=== PATIENT | male | born 1990 | race Caucasian/White ===

== ENCOUNTER 2022-07-05 23:45 | Emergency (ER) | payer BC, SELFPAY ==
--- NOTE | ~2022-07-05 | XR_ITS ---
EXAMINATION: XR chest 2V DATE: 07/06/2022 00:25 INDICATION: Left chest pain. Shortness of breath. TECHNIQUE: Frontal and lateral views of the chest were obtained. COMPARISON: None. FINDINGS: The chest demonstrates clear lungs without pneumonia, pleural effusion, or pneumothorax. Th e heart size is normal. IMPRESSION: 1. No acute cardiopulmonary disease. Reviewed, dictated and finalized at location A.
--- NOTE | 2022-07-05 23:47 | ECG_ITS ---
Measurements Intervals [place] Rate: 78 P: 28 AL: 143 QRS: 23 QRSD: 98 T: 17 QT: 372 QTc: 424 Interpretive Statements SINUS RHYTHM WITH OCCASIONAL SUPRAVENTRICULAR PREMATURE COMPLEXES Electronically Signed On 07-06-2022 8:25:20 CDT by Peter Mims M.D.
[2022-07-05 23:51] VITALS: BP 156/119; PULSE 73; PULSE 83; RESP 18; RESP 20; TEMP 36.8; O2SAT 100
[2022-07-05 23:52] VITALS: BP 156/119; PULSE 78; RESP 13; O2SAT 100
[2022-07-05 23:58] VITALS: PULSE 80
[2022-07-06] VITALS (19 sets, daily range): BP systolic 124–164; BP diastolic 73–100; PULSE 53–77; RESP 13–21; O2SAT 95–100
--- NOTE | 2022-07-06 00:04 | ED.CHESTPAIN ---
HPI - Chest Pain General Chief Complaint: Chest Pain Stated Complaint: CP, SOB Time Seen by Provider: 07/05/22 23:51 History of Present Illness HPI narrative: Pt is a 31 y/o male, presents to ED via POV with 5 day hx of left midsternal chest pain, non radiating, constant and described as tightness . Pain was worse 4 days ago and has since improved some however, he continues to have this discomfort and associates generalized myalgia, fatigue and malaise. He has no known fevers or chills, denies cough or URI symptoms, abdominal pain, NVDC or urinary symptoms. He denies any additional associated symptoms or modifying factors. Related Data Allergies Allergy/AdvReac Type Severity Reaction Status Date / Time No Known Allergies Allergy Verified 07/06/22 00:19 Review of Systems Review of Systems: Refer to HPI Constitutional: Comments: refer to HPI Cardiovascular: Comments: refer to HPI Musculoskeletal: Comments: refer to HPI Exam Const: General: healthy appearing, no acute distress and alert Orientation/consciousness: patient oriented x3 Limitations: no limitations HENMT: Head: normal to inspection Ears: external ears normal, TM's normal bilaterally and EAC's normal Mouth: Yes Normal oral and palatal mucosa present Teeth and gingiva: dentition normal Eyes: Conjunctivae: conjunctivae normal Pupils: Equal, round and reactive pupils present EOM: EOMs intact bilaterally Neck: Neck: normal visual inspection, no lymphadenopathy and no meningeal signs Chest: Chest palpation & inspection: tenderness (mild ttp over the left sternal border, no crepitus or subq emphysema ) Cardio: Rate: regular rate Rhythm: regular rhythm GI: GI Palp: Yes Soft to palpation, No Tenderness to palpation present (GI), No Guarding due to palpation present (GI), No Rigid due to palpation, No Hernia present, No Palpable mass present and No Rebound tenderness present Back/Spine/Pelvis: Back: no CVA tenderness Skin: General skin exam: normal color Rashes: no rashes Neuro: General: patient oriented x3, moves all extremities, no meningeal signs, no focal motor deficits and CN's II-XI intact bilaterally Psych: Affect: Anxious affect present Course Course Emergency Course: Pt's pain has remained present but is now improved, times 5 days. negative troponin, all other serum studies WNL, EKG unremarkable, CXR clear. Suspect costochondritis versus asthma exacerbation given history of same. Will discharge home with inhaler for rescue, recommending oral antihistamines and PCP FU is stressed. Vital Signs Vital signs: Vital Signs Temperature 36.8 C 07/05/22 23:51 Pulse Rate 73 07/05/22 23:51 Respiratory Rate 18 07/05/22 23:51 Blood Pressure 156/119 H 07/05/22 23:51 Pulse Oximetry 100 07/05/22 23:51 Oxygen Delivery Room Air 07/05/22 23:51 Temperature 36.8 C 07/05/22 23:51 Pulse Rate 80 07/05/22 23:58 Respiratory Rate 18 07/05/22 23:51 Blood Pressure 156/119 H 07/05/22 23:51 Pulse Oximetry 100 07/06/22 00:18 Oxygen Delivery Room Air 07/06/22 00:18 MDM - Chest Pain Lab Data Result diagrams: 07/06/22 00:07 07/06/22 00:07 Labs: Lab Results 07/06/22 07/06/22 07/06/22 Range/Units 00:07 00:07 00:07 WBC 11.1 H (4.5-10.0) K/mm3 RBC 5.52 H (4.2-5.4) M/mm3 Hgb 15.4 H (12.0-15.0) g/dL Hct 46.0 (37.0-47.0) % MCV 83.3 (80-100) fl MCH 27.9 (26-34) pg MCHC 33.5 (32-36) g/dl RDW 12.5 (11.5-14.5) % Plt Count 264 (150-375) k/mm3 MPV 10.5 H (7.4-10.4) fl Immature Gran % (Auto) 0.4 (0-0.5) % Neut % (Auto) 50.5 (45.5-73.1) % Lymph % (Auto) 37.6 (18.3-44.2) % Allen % (Auto) 9.1 H (2.6-8.5) % Eos % (Auto) 2.0 (0-4.4) % Baso % (Auto) 0.4 (0.2-1.2) % Lymph # (Auto) 4.18 H (0.9-3.2) K/mm3 Allen # (Auto) 1.0 H (0.1-0.6) K/mm3 Eos # (Auto) 0.2 (0-0.3) K/mm3 Baso # (Auto) 0.0 (0.0-0.1) K/mm
[2022-07-06 00:16] LABS: Basophils Percent Auto 0.4 % (0.2-1.2); Eosinophils Absolute Auto 0.2 K/mm3 (0-0.3); Hemoglobin 15.4 g/dL (12.0-15.0); Immature Granulocyte Absolute 0.05 K/mm3 (0.00-0.031); Immature Granulocyte Percent A 0.4 % (0-0.5); Lymphocytes Absolute Auto 4.18 K/mm3 (0.9-3.2); Lymphocytes Percent Auto 37.6 % (18.3-44.2); Mean Corpuscular HGB Conc 33.5 g/dl (32-36); Mean Corpuscular Hemoglobin 27.9 pg (26-34); Mean Corpuscular Volume 83.3 fl (80-100); Mean Platelet Volume 10.5 fl (7.4-10.4); Monocytes Percent Auto 9.1 % (2.6-8.5); Neutrophils Absolute Auto 5.6 K/mm3 (1.3-6.7); Neutrophils Percent Auto 50.5 % (45.5-73.1); Platelet Count Result 264 k/mm3 (150-375); Red Blood Count 5.52 M/mm3 (4.2-5.4); Red Cell Distribution Width 12.5 % (11.5-14.5); White Blood Count 11.1 K/mm3 (4.5-10.0)
[2022-07-06 00:27] LABS: Alanine Aminotransferase 27 U/L (6-35); Albumin Level 4.9 g/dL (3.5-5.1); Alkaline Phosphatase 70 U/L (38-126); Anion Gap 11 mmol/L (8-16); Aspartate Amino Transferase 30 U/L (14-36); Bilirubin,Total 0.3 mg/dL (0.2-1.3); Blood Urea Nitrogen 17 mg/dL (7-17); Calcium 9.2 mg/dL (8.4-10.2); Carbon Dioxide 29 mmol/L (22-30); Chloride 98 mmol/L (98-107); Estimated CRCL calculation 96 ml/min; Estimated Glomerular Filt Rate 58; Glucose 99 mg/dL (65-110); Lipase 91 U/L (23-300); Potassium 3.9 mmol/L (3.4-5.0); Prothrombin Time 13.2 Seconds (11.1-14.7); Sodium 138 mmol/L (137-145)
[2022-07-06 00:28] LABS: Partial Thromboplastin Time 33.3 SECONDS (22.3-36.8)
[2022-07-06 00:28] LABS: Creatine Kinase 83 U/L (30-135)
[2022-07-06] MEDS: ASPIRIN 81 MG CHEWABLE TABLET 324 MG PO (00:30)
[2022-07-06 00:31] LABS: D Dimer < 0.27 ug/mL (<0.48)
[2022-07-06 00:38] LABS: Troponin I < 0.012 ng/mL (0.000-0.034)
[2022-07-06 00:39] LABS: Creatine Kinase MB 1.1 ng/mL (0.0-2.37)
[2022-07-06] MEDS: SODIUM CHLORIDE 0.9% IV 1,000 ML 999 ML IV CONT (00:45)
[2022-07-06 00:52] LABS: SARS-CoV-2 RNA PCR Negative
== END 2022-07-06 02:19 | disposition home or self-care (01) ==
PROVIDERS: Emergency Medicine; Emergency Provider Nurse Practitioner Family; PCP Family Medicine
DX: R07.89 Other chest pain (principal); Z20.822 Contact with and (suspected) exposure to COVID-19
CPT/HCPCS: 36415; 71046; 80053; 82550; 82553; 83690; 84484; 85025; 85380; 85610; 85730; 93005; 96360; 99284; A9270; C9803; J7030; U0003; U0005

== ENCOUNTER 2023-08-29 16:20 | Emergency (ER) | payer BC, SELFPAY ==
[2023-08-29] VITALS (7 sets, daily range): BP systolic 99–144; BP diastolic 61–102; PULSE 74–91; RESP 14–18; TEMP 36.8–37; O2SAT 96–100
--- NOTE | ~2023-08-29 | CT_ITS ---
EXAMINATION: CT abdomen pelvis w con DATE: 08/29/2023 17:37 INDICATION: Upper abdominal pain. Fever. TECHNIQUE: Computed tomography (CT) of the abdomen and pelvis was performed with 100 mL Omnipaque 350 intravenous contrast. Automated exposure control and iterative reconstruction technique were employe d. The dose-length product was 966.81 mGy-cm. COMPARISON: None. FINDINGS: The visualized portions of the lung bases demonstrate minimal atelectasis. No pleural effus ion. The heart size is normal. No pericardial effusion. The liver and spleen are normal. The gallblad maddison is distended and demonstrates wall thickening and pericholecystic fat stranding, consistent with acute cholecystitis. The spleen, pancreas, adrenal glands, and kidneys are normal. There is a left in guinal hernia containing fat. The appendix is normal. There are no dilated loops of bowel. There are no pathologically enlarged lymph nodes. There is no free intraperitoneal fluid. There is mild lumbar spondylosis IMPRESSION: 1. Acute cholecystitis. 2. Left inguinal hernia containing fat. Reviewed, dictated and finalized at location E.
--- NOTE | 2023-08-29 16:25 | ED.ABDPAIN ---
HPI - Abdominal Pain General Chief Complaint: Abdominal Pain Stated Complaint: abdominal pain/fever/diarrhea Time Seen by Provider: 08/29/23 16:25 History of Present Illness HPI narrative: Patient is a 33 year old male with history of prior inguinal hernia repair, here with abdominal pain. Patient notes that Tuesday night he ate a lot of fried food and dairy containing food. He notes he thinks that this has bothered him in the past. He has had intermittent nocturnal abdominal pain and cramping over the last 3 months. He began having a low grade fever this weekend, running around 99F and generally feeling unwell. He notes that he spent most of the day yesterday in bed, only waking to have something to drink last night. This morning he woke up feeling quite a bit better. He made himself a breakfast with eggs and shortly after started having significant abdominal pain. Pain is located in the epigastrium and radiates the left side. Pain has been associated with 3 episodes of diarrhea today. He denies taking anything at home for the symptoms. No associated nausea or vomiting. He has noted some dark urine over the last couple of days and has been trying to drink more water to clear it up. He has had some dysuria, no penile discharge, no hematuria, no history of kidney stone. One sexual partner, irregular condom use. No cough, congestion. No sick contacts. Last PO intake was sips of water before arrival around 4 PM, last solid food intake was around 10 AM this morning at breakfast. Related Data Home Medications Medication Instructions Recorded Confirmed No Home Medications 08/29/23 08/29/23 Allergies Allergy/AdvReac Type Severity Reaction Status Date / Time No Known Allergies Allergy Verified 08/29/23 16:31 Review of Systems Review of Systems: All systems reviewed & are unremarkable except as noted in HPI and below PMFSH Family History Family History Grandparent Acute myocardial infarction Diabetes mellitus Mother Asthma Father Asthma Social History Social History Smoking status: Never smoker Alcohol intake: current Drinks per week: 1 Substance use: never Lack of Transportation: No Lack of Food: Never True Current Housing: I Have Housing Concerned About Future Housing: No Difficulty Paying Gas/Electric Bills: No Difficulty Paying for Meds: No Currently Unemployed: No Education: Associate Degree Difficulty w/ Childcare or Family Care: No Spiritual care concerns: No Exam Narrative: GENERAL: Well-appearing, well-nourished, and in no acute distress. HEAD: Normocephalic, atraumatic. EYES: PERRLA and EOMI. ENT: Nares clear. Mucous membranes moist. NECK: Supple. CHEST: Clear to auscultation. No respiratory distress. HEART: Regular rate and rhythm. Normal peripheral pulses. ABDOMEN: Soft, Left CVA tenderness, no Right CVA tenderness. Tenderness in the epigastrium and on the left abdomen. No rebound or guarding, nondistended. EXTREMITIES: Normal range of motion. No edema. SKIN: Warm, dry, no rash. NEURO: No focal deficits. Alert and oriented x3. PSYCH: Normal mood and affect. Course Course Emergency Course: Chart review performed. Last visit here was for chest pain in 2021. Patient seen evaluated, in no acute distress. Triage vitals within normal limits. He has some left CVA tenderness as well as some epigastric and left-sided abdominal tenderness. Differentials include but are not limited to UTI, pyelonephritis, diverticulitis, gastritis. Will do CT abdomen pelvis to evaluate for possible stone versus colitis/diverticulitis. Lab work reviewed. Leukocytosis of 16.5, electrolytes normal, normal renal function, normal LFTs, normal lipase. UA negative for UTI, does have some hematuria. Viral swabs negative. CT shows acute cholecystitis. Will discuss last PO intake and transfer options with patient. Patient agreeable to transfer to [facility]. Spoke with Dr. Burger, accept
[2023-08-29] MEDS: PANTOPRAZOLE SODIUM IV 40 MG VIAL IV PUSH (16:45)
[2023-08-29] MEDS: SODIUM CHLORIDE 0.9% IV 1,000 ML 999 ML IV CONT (16:45)
[2023-08-29 16:54] LABS: Hematocrit 45.1 % (40.0-54.0); Hemoglobin 15.1 g/dL (14.0-18.0); Mean Corpuscular HGB Conc 33.5 g/dL (32.0-36.0); Mean Corpuscular Hemoglobin 27.9 pg (27.0-31.0); Mean Corpuscular Volume 83.2 fL (78.0-102.0); Mean Platelet Volume 10.3 fl (8.7-11.0); Platelet Count Result 225 K/mm3 (150-420); Red Blood Count 5.42 M/mm3 (4.70-6.10); Red Cell Distribution Width 11.6 % (11.6-14.4); White Blood Count 16.5 K/mm3 (4.8-10.8)
[2023-08-29 17:13] LABS: Alanine Aminotransferase 21 U/L (16-63); Albumin Level 3.9 g/dL (3.4-5.0); Alkaline Phosphatase 70 U/L (46-116); Anion Gap 10 mmol/L (8-16); Aspartate Amino Transferase 10 U/L (15-37); Bilirubin,Total 0.9 mg/dL (0.00-1.00); Blood Urea Nitrogen 13 mg/dL (7-18); Calcium 9.1 mg/dL (8.5-10.1); Carbon Dioxide 28 mmol/L (21-32); Chloride 98 mmol/L (98-108); Estimated CRCL calculation 131 ml/min; Estimated Glomerular Filt Rate > 60; Glucose 116 mg/dL (70-99); Lipase 22 U/L (16-77); Osmolality Calculated 283 mOsm/kg (285-295); Potassium 3.9 mmol/L (3.5-5.1); Sodium 136 mmol/L (136-145); Total Protein 7.9 g/dL (6.4-8.2)
[2023-08-29 17:21] LABS: Atypical Lymphocytes Present; Band Neutrophils Percent 0 % (0-6); Lymphocytes Absolute Manual 1.48 K/mm3 (1.1-4.5); Lymphocytes Percent Manual 9 % (18-44); Monocytes Absolute Manual 0.33 K/mm3 (0.1-0.90); Monocytes Percent Manual 2 % (3-9); Neutrophils Absolute Manual 14.68 K/mm3 (1.3-6.7); Neutrophils Percent Manual 89 % (46-73)
[2023-08-29 17:22] LABS: Eosinophils Percent Manual 0 % (1-6); Platelet Estimate Adequate (Adequate)
--- NOTE | 2023-08-29 17:24 | PC.NURSE ---
PT REPORTS NO IMPROVEMENT WITH PAIN. ERP IS AWARE, TO AWAIT RESULTS. IVF COMPLETED. PT UP TO RR WITHOUT DIFFICULTY. WILL CONTINUE TO MONITOR.
[2023-08-29 17:36] LABS: Appearance Urine Clear (Clear); Bilirubin Urine Negative (Negative); Blood Urine Trace-Intact (Negative); Color Urine Light Yellow (Yellow); Glucose Urine UA Negative (Negative); Ketones Urine Negative (Negative); Leukocyte Esterase Ur Negative LEU/UL (Negative); Nitrate Urine Negative (Negative); Protein Urine Negative (Negative); Specific Grav Ur <= 1.005 (1.010-1.020); pH Urine 6.5 (5.0-8.0)
[2023-08-29 17:42] LABS: Add Urine Microscopic? YES; Bacteria Urine None seen /hpf; RBC Urine 0-2 /hpf (0-2); Squamous Epithelial Cell Urine None seen /hpf (Few); WBC Urine 0-3 /hpf (0-3)
[2023-08-29 17:43] LABS: Influenza A QL RT-PCR Negative (Negative); Influenza B QL RT-PCR Negative (Negative); RSV RNA, RT-PCR Negative (Negative); SARS-CoV-2 RNA PCR Negative (Negative)
[2023-08-29] MEDS: MORPHINE SULFATE (*CRX) 4 MG/ML INJ IV PUSH (17:51)
[2023-08-29] MEDS: ONDANSETRON INJ 4 MG/2 ML VIAL IV PUSH (17:51)
[2023-08-29] MEDS: PIPERACILLIN/TAZ 4.5G/NS 100ML 4.5 GM/100 ML BAG IVPB (18:02)
--- NOTE | 2023-08-29 18:21 | PC.NURSE ---
PT IS AWAITING ROOM ASSIGNMENT AT [facility] AT THIS TIME. BELONGINGS LIST COMPLETED. PT IS AWARE OF PLAN OF CARE. WILL CONTINUE TO MONITOR.
--- NOTE | 2023-08-29 18:38 | PC.NURSE ---
MOTHER HAS ARRIVED AT BEDSIDE, IS REQUESTING TO SPEAK WITH ERP. ERP IS AT BEDSIDE. MOTHER IS INQUIRING TO HAVE PT TRANSFERRED TO [facility] TO HER BILLIARY SPECIALIST AT THIS TIME. WILL CONTINUE TO MONITOR. RON CALLS, REPORTS PT WILL GET AT BED AT [facility] AFTER SHIFT CHANGE, THE ROOM IS GETTING CLEANED AT THIS TIME.
[2023-08-29] MEDS: HYDROmorphone HCL INJ (*CRX) 2 MG/ML VIAL 1 MG IV PUSH (19:18)
--- NOTE | 2023-08-29 20:07 | PC.NURSE ---
report given to Roma ALONZO @ [facility] @ 2002. [facility] called for transport @2005.
--- NOTE | 2023-08-29 20:15 | PC.NURSE ---
[facility] declining transfer at this time
--- NOTE | 2023-08-29 20:17 | PC.NURSE ---
[facility] contacted for transfer.
--- NOTE | 2023-08-29 20:39 | PC.NURSE ---
[facility] has arrived to transport pt at this time.
[2023-08-31 09:11] LABS: Trichomonas Vag PCR NOT DETECTED (NOT DETECTE)
[2023-08-31 09:36] LABS: Chlamydia trachomatis NOT DETECTED (NOT DETECTE); Neisseria gonorrhoeae PCR NOT DETECTED (NOT DETECTE)
== END 2023-08-29 20:40 | disposition short-term general hospital (02) ==
PROVIDERS: Emergency Provider Student in an Organized Health Care Education/Training Program; PCP Family Medicine
DX: K81.0 Acute cholecystitis (principal); Z20.822 Contact with and (suspected) exposure to COVID-19
CPT/HCPCS: 36415; 74177; 80053; 81001; 83605; 83690; 85025; 87491; 87591; 87637; 87661; 96361; 96365; 96375; 99285; C9113; J1170; J2270; J2405; J2543; J7030; Q9967

== ENCOUNTER 2023-08-29 22:01 | Inpatient (IN) | payer BC, SELFPAY ==
--- NOTE | ~2023-08-29 | US_ITS ---
Limited Abdominal Sonogram: Real-time sonographic imaging of the right upper quadrant was performed. Clinical History: Abdominal pain Findings: The liver appears normal with no evidence of mass lesion or bile duct dilatation. Main por sergio vein demonstrates normal direction of flow. The gallbladder is well distended, and and contains g allbladder sludge. Gallbladder wall is mildly thickened to 5 mm The common bile duct measures 4 mm. The visualized pancreas, aorta, and IVC are unremarkable. Impression: Gallbladder sludge with mild gallbladder wall thickening, which could indicate superimposed acute cho lecystitis. Correlate clinically. Consider HIDA scan as indicated. Reviewed, dictated and finalized at location M. Impression: Gallbladder sludge with mild gallbladder wall thickening, which could indicate superimposed acute cholecystitis. Correlate clinically. Consider HIDA scan as i ndicated.
--- NOTE | 2023-08-29 21:37 | ADMGEN ---
This patient, Trent Licea, was admitted to Medical Room 346-01. Patient/family oriented to hospital policies and general routines including ID bracelet, bed and alarms, visiting hours, pain management, procedures, bathroom and other care routines, personal items, smoking policy, room service/diet, and visiting hours. Information on how to activate the Rapid Response Team has been discussed. Patient/Family are encouraged to report perceived risks to care and to ask questions if they do not understand what they are told or what they should do.
[2023-08-29 22:00] VITALS: BP 123/75; PULSE 74; RESP 18; TEMP 35.9; O2SAT 98; BMI 28.8
[2023-08-29] MEDS: MORPHINE SULFATE (*CRX) 2 MG/ML INJ IV PUSH (22:41)
[2023-08-29] MEDS: SODIUM CHLORIDE 0.9% IV 1,000 ML 100 ML IV CONT (22:41)
[2023-08-29] MEDS: PIPERACILLN/TAZ 3.375GM/NS50ML 3.375 GM/50 ML BAG IVPB (22:42)
[2023-08-29] MEDS: HYDROcodone/acetaminophen (*CRX) 5-325 MG TABLET 1 TAB PO (22:42)
[2023-08-30] VITALS (14 sets, daily range): BP systolic 115–146; BP diastolic 66–115; PULSE 78–114; RESP 14–25; TEMP 36.7–37.8; O2SAT 90–99
[2023-08-30] MEDS: MORPHINE SULFATE (*CRX) 2 MG/ML INJ IV PUSH ×6 (01:27→23:20)
[2023-08-30] MEDS: PIPERACILLN/TAZ 3.375GM/NS50ML 3.375 GM/50 ML BAG IVPB ×4 (05:45→23:19)
[2023-08-30] MEDS: PANTOPRAZOLE SODIUM IV 40 MG VIAL IV PUSH (08:50)
[2023-08-30] MEDS: SODIUM CHLORIDE 0.9% IV 1,000 ML 100 ML IV CONT ×2 (08:56→23:19)
--- NOTE | 2023-08-30 09:08 | PM.IMHP ---
H&P: HPI History of Present Illness Date/Time: 08/30/23 09:08 Chief Complaint: Upper abdominal pain Narrative: This is a 33-year-old man who presented to [place] ER with complaints of epigastric abdominal pain x4 days. He has been having intermittent epigastric abdominal pain for the past 6 months. This has typically occurred in the middle of the night after eating either ice cream or cookies and milk before bed. He thought it was related to lactose intolerance. The abdominal pain would resolve after a few hours at home. On Tuesday, he had eaten fried foods and woke up a few hours later with a sudden onset of epigastric abdominal pain. His pain radiated across his entire upper abdomen. He had associated nausea, but no vomiting. His pain was more severe than previous episodes and lasted into the next day. He then ate brats and steak on Tuesday without any aggravating pain. By Tuesday, he felt his abdominal pain had improved, but he developed a low-grade fever and chills. He felt fatigued with generalized malaise. The following morning, yesterday, he tried eating eggs and toast for breakfast, and his epigastric abdominal pain returned. He then had associated diarrhea. The pain persisted throughout the day and he ultimately came into the ER in [place] for evaluation. Labs were significant for a WBC count of 16,500. LFTs normal. Influenza, RSV, and COVID all negative. In the ER, he complained of some dysuria. Urinalysis showed trace blood. He was tested for chlamydia and gonorrhea, which are pending. CT of the abdomen pelvis showed a distended gallbladder with wall thickening and pericholecystic fat stranding, consistent with acute cholecystitis. Incidentally noted was a left inguinal hernia containing fat. Our service was called and he was transferred to our facility for surgical evaluation. He was started on IV Zosyn, IV fluids, and made NPO. He had a RUQ abdominal ultrasound this morning that showed gallbladder sludge with mild gallbladder wall thickening, which could indicate superimposed acute cholecystitis. Common bile duct normal. He is now seen on the medical floor. He continues to have epigastric pain that is being controlled with IV morphine. He states ultrasound was severely aggravating to his pain. No other complaints at this time. Review of Systems Review of Systems: All systems reviewed & are unremarkable except as noted in HPI and below PMFSH Past Medical History Medical History No pertinent past medical history Surgical History Surgical History History of inguinal hernia repair Family History Family History Grandparent Acute myocardial infarction Diabetes mellitus Mother Asthma Father Asthma Social History Social History Smoking status: Never smoker Alcohol intake: current Drinks per week: 1 Substance use: never Lack of Transportation: No Lack of Food: Never True Current Housing: I Have Housing Concerned About Future Housing: No Difficulty Paying Gas/Electric Bills: No Difficulty Paying for Meds: No Currently Unemployed: No Education: Associate Degree Difficulty w/ Childcare or Family Care: No Spiritual care concerns: No Meds Home Medications and Allergies Home Medications Medication Instructions Recorded Confirmed Type No Home Medications 08/29/23 08/29/23 History Allergies Allergy/AdvReac Type Severity Reaction Status Date / Time No Known Allergies Allergy Verified 08/29/23 16:31 Vital Signs Vital Signs - 24 hr 08/29/23 21:42 08/29/23 22:00 08/30/23 06:00 Temperature 96.6 F L 99.0 F Pulse Rate 74 78 Respiratory Rate 18 16 Blood Pressure 123/75 117/71 Pulse Oximetry 98 98 Oxygen Delivery Room Air Ex
--- NOTE | 2023-08-30 15:16 | P.PNAN_ITS ---
Anes - Initial Pre Proc Eval Procedure: Operation Date: 08/30/23 17:30 Proposed Procedures p Laparoscopic Cholecystectomy - Vanessa Burger MD Date/Time: 08/30/23 15:16 Surgeon: Vanessa Burger MD Pre Op Diagnosis: Cholecystitis Patient Data Age: 33 Gender: M Height: 1.91 m Weight: 104.4 kg Last Vital Signs Temp 36.8 C 08/30/23 14:00 Pulse 109 H 08/30/23 14:00 Resp 18 08/30/23 14:00 BP 146/82 H 08/30/23 14:00 Pulse Ox 95 08/30/23 14:00 O2 Del Method Room Air 08/30/23 08:00 Allergies Allergy/AdvReac Type Severity Reaction Status Date / Time No Known Allergies Allergy Verified 08/29/23 16:31 Home Medications Medication Instructions Recorded Confirmed Type No Home Medications 08/29/23 08/29/23 History Laboratory Tests 08/30/23 10:02 Blood Type O Positive Antibody Screen Negative Patient hx anesthesia problems: none Family hx anesthesia problems: none Results Review: All pre-operative results and documents have been reviewed as part of the pre- operative evaluation. ON LICENSE OF [facility] Past Medical History Medical History No pertinent past medical history Surgical History Surgical History History of inguinal hernia repair Family History Family History Grandparent Acute myocardial infarction Diabetes mellitus Mother Asthma Father Asthma Social History Social History Smoking status: Never smoker Alcohol intake: current Drinks per week: 1 Substance use: never Lack of Transportation: No Lack of Food: Never True Current Housing: I Have Housing Concerned About Future Housing: No Difficulty Paying Gas/Electric Bills: No Difficulty Paying for Meds: No Currently Unemployed: No Education: Associate Degree Difficulty w/ Childcare or Family Care: No Spiritual care concerns: No Anes - Eval Final PreProcedure Day of Procedure 08/30/23 15:16 Patient weight: overweight Heart: regular rate and rhythm Lungs: clear to auscultation Airway: Mallampati scale class II Neurological: alert and oriented Last oral intake: >/= 8 hours ASA classification: II Emergent: no Anesthetic plan: proceed Anesthesia type and monitoring: general ETT and standard monitoring Results Review: All pre-operative results and documents have been reviewed as part of the pre- operative evaluation. Informed Consent: The patient's anesthetic plan and its attendant risks and benefits were discussed with the patient/family/POA. Questions were solicited and answers provided to the satisfaction of the patient/family/POA.
[2023-08-30] MEDS: LACTATED RINGERS 1,000 ML 30 ML IV CONT ×2 (15:24→17:16)
[2023-08-30] MEDS: HYDROmorphone HCL INJ (*CRX) 1 MG/ML SYR IV PUSH (15:24)
--- NOTE | 2023-08-30 15:38 | WPDHPUPDATE1 ---
History and Physical Update Update Date/Time: 08/30/23 15:38 History and Physical has been reviewed, including an updated exam of the patient. There are NO changes in the patient's condition. Risks, benefits, and alternatives have been discussed and questions answered. Patient agrees to proceed with procedure.
[2023-08-30] MEDS: BUPIVACAINE/EPINEPHRINE 0.5% 50 ML VIAL INFILTRATE (16:35)
--- NOTE | 2023-08-30 17:14 | W.PM.PROC2 ---
Procedure Note - Detailed Date of Procedure 08/30/23 Pre-op Diagnosis acute cholecystitis, cholelithiasis Post-op Diagnosis Same Procedure Performed Laparoscopic cholecystectomy Surgeon Vanessa Burger MD Anesthesia General Indications 33-year-old male presented to the hospital complaining of severe upper abdominal pain. Workup, including imaging significant for acute cholecystitis, cholelithiasis. Findings Cholecystitis with cholelithiasis Description of Procedure The patient was taken to the operating room placed in the supine position. After adequate induction of general anesthesia, the patient was prepped and draped in normal sterile fashion. A time-out was then performed to verify the patient's identity as well as the procedure being performed. I then made a 5 mm incision in the infraumbilical region. Through this, a Veress needle was placed into the peritoneal cavity and CO2 gas was then insufflated. After adequate pneumoperitoneum was achieved, the Veress needle was removed and a 5 mm optiview trocar was placed through this incision under direct visualization. I then placed the laparoscope through this trocar site and under direct visualization placed a further 12 mm subxiphoid port as well as 2 additional 5 mm ports in the right upper abdomen. The gallbladder was then identified and was noted to be severely inflamed, distended, and full of gallstones. Given the amount of inflammation and distention, the gallbladder was decompressed. Decompression of very thick sludge and small stones was noted. Once decompressed, I was able to place a grasper at the dome of the gallbladder and this was retracted anterior and cephalad up over the liver. A 2nd retractor was then placed at the infundibulum and retracted laterally, this allowed visualization of the triangle of Calot. I then was able to visualize the cystic duct in its entirety from its proximal insertion into the gallbladder, to its distal junction with the common hepatic/common bile duct junction. This was very tedious and difficult given the amount of inflammation and friability of the tissue. At this point, I carefully skeletonized the proximal cystic duct with the [place] dissector. I then clipped and transected the proximal cystic duct. Next I visualized the cystic artery. Again the artery was skeletonized, clipped, and transected. I then used the Bovie cautery to take down the peritoneal attachments of the gallbladder off the liver bed. This was dofficult given the amount of inflammation in the posterior space. Once the gallbladder specimen was completely detached, an endo-pouch was placed through the 12 mm port site. Of note, the 12 mm port site had to be extended to allow extraction of the gallbladder specimen. I then placed the gallbladder specimen into the Endo pouch and removed the endo-pouch from the 12 mm port site. The specimen will now be sent to pathology for further review. I then copiously irrigated the right upper quadrant. Some mild oozing was noted in the liver bed and this was controlled with the bovie cautery. Hemostasis was noted in the liver bed, the clips were noted to be in good position on both the cystic duct stump and the cystic artery stump. No other pathology was noted in the right upper quadrant. The decision was made to leave a drain in the right upper quadrant given the severity of his cholecystitis. A 19 Setswana LEXI drain was placed in the right upper quadrant coming out through the most lateral 5 mm site. I then moved the laparoscope to the subxiphoid port. No iatrogenic injury or other pathology was noted in the lower abdomen. I then closed the 12 mm trocar site under direct visualization using the Kip cone and 0 Vicryl suture. At this point, the abdomen was desufflated and all ports removed. All port sites were then closed with 4.O Monocryl subcuticular sutures. Dermabond was placed on each incision. The patient tolerated the procedure well, wa
[2023-08-30] MEDS: ACETAMINOPHEN 325 MG TABLET 650 MG PO (17:56)
[2023-08-30] MEDS: HYDROmorphone HCL INJ (*CRX) 1 MG/ML SYR 0.5 MG IV PUSH ×2 (18:06→18:16)
[2023-08-31] MEDS: MORPHINE SULFATE (*CRX) 2 MG/ML INJ IV PUSH (03:35)
[2023-08-31 03:56] VITALS: BP 124/70; PULSE 74; RESP 18; TEMP 36.6; O2SAT 98
[2023-08-31] MEDS: PIPERACILLN/TAZ 3.375GM/NS50ML 3.375 GM/50 ML BAG IVPB ×4 (05:36→23:22)
[2023-08-31] MEDS: PANTOPRAZOLE SODIUM IV 40 MG VIAL IV PUSH (09:06)
[2023-08-31] MEDS: SODIUM CHLORIDE 0.9% IV 1,000 ML 100 ML IV CONT (09:10)
[2023-08-31] MEDS: ONDANSETRON INJ 4 MG/2 ML VIAL IV PUSH (09:11)
[2023-08-31] MEDS: HYDROcodone/acetaminophen (*CRX) 5-325 MG TABLET 1 TAB PO ×4 (09:11→23:22)
--- NOTE | 2023-08-31 10:09 | WPDANESPN ---
Anes - Prog Note Post-Op Date/Time: 08/31/23 10:09 Cardiovascular status: normal Respiratory status: normal Airway patency: baseline Mental status: baseline Post-Op hydration status: normal Vital Signs: Last Vital Signs Temp 36.6 C 08/31/23 03:56 Pulse 74 08/31/23 03:56 Resp 18 08/31/23 03:56 BP 124/70 08/31/23 03:56 Pulse Ox 98 08/31/23 03:56 O2 Del Method Room Air 08/31/23 08:00 O2 Flow Rate 3 08/30/23 18:30 Pain Score (VAS): 0 I/O: Intake & Output 08/30/23 08/31/23 08/31/23 23:59 07:59 15:59 Intake Total 1600 1000 Output Total 680 Balance 920 1000 08/30/23 10:02 Blood Type O Positive Antibody Screen Negative Post-procedural complaints: none Patient Feedback: Patient satisfied with anesthetic care.
[2023-08-31 10:15] VITALS: BP 123/66; PULSE 83; RESP 16; TEMP 37.1; O2SAT 94
[2023-08-31 14:00] VITALS: BP 129/72; PULSE 80; RESP 18; TEMP 36.6; O2SAT 95
--- NOTE | 2023-08-31 15:54 | PM.PNGS ---
Progress Note: A&P Assessment and Plan (1) Acute cholecystitis: Code(s): K81.0 - Acute cholecystitis Status: Acute Assessment and Plan: Slowly improving postop day 1 from a laparoscopic cholecystectomy Will continue IV antibiotics due to severity of cholecystitis Continue low fat diet. Stop IV fluids. Will add a UA with reflex culture for the dysuria Hopefully home tomorrow on oral antibiotics if he continues to progress well Plan I have discussed the patient's case and plan of care with Dr. Burger. Subjective Subjective Date/Time Seen: 08/31/23 15:54 Post Op day: 1 (laparoscopic cholecystectomy) Patient reports: tolerating a regular diet, no flatus, no bowel movement and fever (last night around 5 pm) Interval history: Patient seen this afternoon. He complains of incisional soreness and pain that he has been taking the [place] for. He denies any nausea or vomiting. He complains of some dysuria and dark urine. No other complaints at this time. Review of Systems Review of Systems: All systems reviewed & are unremarkable except as noted in HPI and below Constitutional: Constitutional: Reports as per HPI and Reports no additional constitutional complaints Cardiovascular: Cardiovascular: Reports no additional cardiovascular complaints and Denies chest pain Respiratory: Respiratory: Reports no additional respiratory complaints, Denies cough and Denies dyspnea Gastrointestinal: Gastrointestinal: Reports as per HPI and Reports no additional gastrointestinal complaints Exam Const: General: comfortable, no acute distress and awake Orientation/consciousness: patient oriented x3 Resp: Effort & Inspection: normal respiratory effort Auscultation: clear to auscultation bilaterally Cardio: Rate: regular rate Rhythm: regular rhythm GI: Inspection: non-distended and incision (incisions dry and intact) GI Palp: Yes Soft to palpation and Yes Tenderness to palpation present (GI) (incisional) Auscultation: normal bowel sounds Neuro: General: moves all extremities and no focal motor deficits Extrem: General: no calf tenderness and no edema Psych: Mental Status: mental status grossly normal Insight: Good insight present (Psych) Objective Data Vital Signs Vital Signs: Vital Signs - 24 hr 08/30/23 17:16 08/30/23 17:30 08/30/23 17:45 Temperature 100.0 F H 99.5 F Pulse Rate 80 89 93 Respiratory Rate 25 H 20 24 H Blood Pressure 128/115 H 128/72 127/79 Pulse Oximetry 90 98 96 Oxygen Delivery Simple Face Mask Simple Face Mask Simple Face Mask Oxygen Flow Rate 8 8 6 08/30/23 18:00 08/30/23 18:15 08/30/23 18:30 Temperature Pulse Rate 93 100 93 Respiratory Rate 18 14 22 H Blood Pressure 125/76 128/75 121/73 Pulse Oximetry 94 96 97 Oxygen Delivery Nasal Cannula Nasal Cannula Nasal Cannula Oxygen Flow Rate 3 3 3 08/30/23 18:56 08/30/23 19:07 08/30/23 19:35 Temperature 99.4 F 99.4 F 98.8 F Pulse Rate 103 H 88 90 Respiratory Rate 18 18 16 Blood Pressure 115/71 131/82 118/79 Pulse Oximetry 96 93 99 Oxygen Delivery Oxygen Flow Rate 08/30/23 20:35 08/30/23 20:00 08/30/23 23:34 Temperature 98.1 F 98.3 F Pulse Rate 92 86 Respiratory Rate 18 16 Blood Pressure 144/66 H 139/85 Pulse Oximetry 91 97 Oxygen Delivery Room Air Oxygen Flow Rate 08/31/23 03:56 08/31/23 08:00 08/31/23 10:15 Temperature 98 F 98.7 F Pulse Rate 74 83 Respiratory Rate 18 16 Blood Pressure 124/70 123/66 Pulse Oximetry 98 94 Oxygen Delivery Room Air Oxygen Flow Rate 08/31/23 14:00 Temperature 97.9 F Pulse Rate 80 Respiratory Rate 18 Blood Pressure 129/72 Pulse Oximetry 95 Oxygen Delivery Oxygen Flow Rate Intake/Output Intake/Output: Intake & Output 08/28/23 08/29/23 08/30/23 08/31/23 23:59 23:59 23:59 23:59 Intake Total 50 2800 1290 Output Total 600 1280 Balance -550 1520 1290 Meds/Results Medications: Active Medications Generic Name Dose Route Star
[2023-08-31 19:16] VITALS: BP 103/68; PULSE 79; RESP 20; TEMP 37.2; O2SAT 93
[2023-08-31 19:36] LABS: Appearance Urine Clear (Clear); Bacteria Urine None Seen /hpf; Bilirubin Urine Negative (Negative); Blood Urine 2+ (Negative); Color Urine Yellow (Yellow); Glucose Urine UA Negative (Negative); Ketones Urine Negative (Negative); Leukocyte Esterase Ur Trace LEU/UL (Negative); Nitrate Urine Negative (Negative); Non Pathogenic Casts 0-2; Protein Urine 1+ mg/dL (Negative); Squamous Epithelial Cell Urine None seen /hpf (Few)
[2023-08-31 19:41] LABS: Add Urine Microscopic? YES; Specific Grav Ur 1.036 (1.001-1.035)
[2023-08-31 23:30] VITALS: BP 102/65; PULSE 70; RESP 20; TEMP 36.8; O2SAT 90
[2023-09-01] MEDS: HYDROcodone/acetaminophen (*CRX) 5-325 MG TABLET 1 TAB PO ×2 (03:25→08:47)
[2023-09-01 03:26] VITALS: BP 110/73; PULSE 72; RESP 20; TEMP 37; O2SAT 94
[2023-09-01] MEDS: PIPERACILLN/TAZ 3.375GM/NS50ML 3.375 GM/50 ML BAG IVPB ×2 (05:34→12:39)
[2023-09-01] MEDS: PANTOPRAZOLE SODIUM IV 40 MG VIAL IV PUSH (08:47)
--- NOTE | 2023-09-01 11:49 | PM.DS ---
DS: Admitting Diagnosis Discharge Date 09/01/23 Admitting Diagnosis acute cholecystitis DS: Discharge Diagnosis Discharge Diagnosis (1) Acute cholecystitis: Code(s): K81.0 - Acute cholecystitis Status: Acute Assessment and Plan: status post cholecystectomy, much improved today, drain removed at bedside, continue routine postoperative care, home with p.o. antibiotics and analgesia, follow-up 2 weeks DS: Summary Hospital Course Reason for hospitalization: acute cholecystitis Hospital Course: The patient is a 33-year-old male presenting from outside hospital with severe acute cholecystitis. The patient was transferred to [facility] and admitted to the surgical service. Upon evaluation, it was decided the patient would need emergent cholecystectomy. The patient was taken to the operating room on 08/30 and cholecystectomy was performed, please see full operative report for details of that procedure. Postoperatively, the patient did well and was transferred back to the surgical floor. The following day, the patient complained of severe soreness and was still having some drainage from his right upper quadrant drain. It was decided to keep the patient for continued IV antibiotics and pain control. On postoperative day 2. , the patient was beginning to feel much improved and his pain was well controlled with p.o. analgesia. He was up and ambulating without issue. His drain was putting out minimal serosanguineous output and will be discontinued at this time. The patient will be sent home with p.o. analgesia and antibiotics. He will follow up with me in 2 weeks. Status at Discharge Functional status at discharge: independent ambulation Overall status at discharge: patient is progressing back to baseline Time Spent with Patient Time attestation: Total time spent providing and/or coordinating discharge services: Time spent: Less than 30 minutes Exam Const: General: cooperative, comfortable and no acute distress Resp: Auscultation: clear to auscultation bilaterally Cardio: Rate: regular rate Rhythm: regular rhythm GI: Inspection: normal to inspection GI Palp: Yes abdominal tenderness, Yes Soft to palpation, Yes Tenderness to palpation present (GI), No Guarding due to palpation present (GI) and No Rigid due to palpation Other: Drain removed at bedside DS: Data Data Completed and Pending Pending studies at discharge: Pending at discharge 08/30/23 16:47 Surgical [PTH] Routine Labs on day of discharge: Labs from last 24 hours 08/31/23 19:19 Urine Color Yellow Urine Appearance Clear Urine pH 6.0 Ur Specific [place] 1.036 H Urine Protein 1+ H Urine Glucose (UA) Negative Urine Ketones Negative Ur Blood (Man) 2+ H Urine Nitrate Negative Urine Bilirubin Negative Urine Urobilinogen 1.0 Leukocyte Esterase Rfl Trace H Urine RBC 11-20 H Urine WBC 6-10 H Ur Squamous Epith Cells None seen Urine Bacteria None seen Urine Casts 0-2 Discharge Plan Discharge Attending physician on discharge: Vanessa Burger Discharging Clinician: Vanessa Burger Anticipated Discharge Date/Time: 09/01/23 10:40 Patient Disposition: Home, Self-Care Activity: may shower and as tolerated Diet: as tolerated Wound Care Instructions: incision open to air Discharge Instructions: DISCHARGE INSTRUCTION SHEET FOR HERNIA, GALLBLADDER AND APPENDIX SURGERIES DR. BURGER PATIENT TO TAKE HOME 1. May shower in 24 hours, no soaking in bath x 2weeks. 2. Call office for: Wound increasingly painful or bleeding Vomiting Fever of greater than 101 degrees 3. If no bowel movement for three days, take 1 oz. (30 ml) Milk of Magnesia or MiraLax 17g 1 to 2 times daily. 4. No heavy lifting > 10-15 pounds x 6 weeks for hernia repairs and 2 weeks for laparoscopic cholecystectomy or appendectomy. 5. No driving for 3 days or while taking narcotic pain medications. 6
== END 2023-09-01 16:15 | disposition home or self-care (01) | DRG 419 ==
PROVIDERS: Nurse Practitioner Family; Admitting Provider Surgery; PCP Family Medicine; Visit Provider Surgery
PROC: 0FT44ZZ Resection of Gallbladder, Percutaneous Endoscopic Approach (ICD-10-PCS; CPT 47562; principal; 2023-08-30 17:30)
DX: K80.00 Calculus of gallbladder with acute cholecystitis without obstruction (principal); Z28.21 Immunization not carried out because of patient refusal
CPT/HCPCS: 36415; 76705; 81001; 86850; 86900; 86901; 87086; 88304; A9270; C9113; J0330; J1100; J1170; J2250; J2270; J2405; J2543; J2704; J3010; J7030; J7120

== ENCOUNTER 2023-09-22 19:57 | Emergency (ER) | payer BC, SELFPAY ==
--- NOTE | ~2023-09-22 | XR_ITS ---
EXAMINATION: XR chest 1V portable DATE: 09/22/2023 21:30 INDICATION: Shortness of breath. Fever. Cough. Anterior chest pain. TECHNIQUE: A single frontal view of the chest was obtained. COMPARISON: Chest 2 views 07/06/2022, CT abdomen and pelvis 08/29/2023 FINDINGS: There is no pneumonia, pleural effusion, or pneumothorax. The heart size is normal. IMPRESSION: 1. No acute cardiopulmonary disease. Reviewed, dictated and finalized at location [facility]. [facility]
[2023-09-22 20:45] VITALS: BP 110/85; PULSE 87; RESP 18; TEMP 37.2; O2SAT 98
[2023-09-22] MEDS: ONDANSETRON HCL ODT 4 MG TABLET PO (21:36)
[2023-09-22 21:56] LABS: Influenza A QL RT-PCR Negative (Negative); Influenza B QL RT-PCR Negative (Negative); SARS-CoV-2 RNA PCR Positive (Negative)
[2023-09-22 22:08] LABS: RSV RNA, RT-PCR Negative (Negative)
[2023-09-22 22:09] LABS: Hematocrit 42.1 % (40.0-54.0); Hemoglobin 13.8 g/dL (14.0-18.0); Mean Corpuscular HGB Conc 32.8 g/dL (32.0-36.0); Mean Corpuscular Hemoglobin 27.7 pg (27.0-31.0); Mean Corpuscular Volume 84.4 fL (78.0-102.0); Mean Platelet Volume 10.9 fl (8.7-11.0); Platelet Count Result 252 K/mm3 (150-420); Red Blood Count 4.99 M/mm3 (4.70-6.10); Red Cell Distribution Width 12.1 % (11.6-14.4); White Blood Count 7.7 K/mm3 (4.8-10.8)
--- NOTE | 2023-09-22 22:14 | ED.URI ---
HPI - URI/Sore Throat General Chief Complaint: Upper Respiratory Infection Stated Complaint: fever with abdominal pain Source: patient and family Mode of arrival: ambulatory Limitations: no limitations History of Present Illness HPI Narrative: this is a 33-year-old male who presents with cough congestion with some some chest tightness and some mild shortness of breath with low-grade fever and chills with no abdominal pain does have some nausea with no vomiting no diarrhea constipation no chest pain. Patient recently cholecystectomy approximately 2 weeks ago. MD elicited complaint: fever and cough Onset (ago): day(s) Consistency: constant Severity: mild Related Data Home Medications Medication Instructions Recorded Confirmed amoxicillin 500 mg-potassium 1 tablet PO TID 09/22/23 09/22/23 clavulanate 125 mg tablet Allergies Allergy/AdvReac Type Severity Reaction Status Date / Time No Known Allergies Allergy Verified 09/16/23 14:24 Review of Systems Review of Systems: All systems reviewed & are unremarkable except as noted in HPI and below PMFSH Past Medical History Medical History Chest tightness Constipation Coughing Diarrhea Enlarged lymph nodes Left knee pain No pertinent past medical history Keily-Schlatter's disease Patellar tendonitis Peroneal tendonitis SOB (shortness of breath) Surgical History Surgical History History of inguinal hernia repair History of repair of hiatal hernia Family History Family History Grandparent Diabetes mellitus Cerebrovascular accident Sibling Family history of migraine headaches Mother Patient's mother is in good health Unknown Asthma Unknown Arthritis Grandparent Acute myocardial infarction Diabetes mellitus Mother Asthma Father Asthma Social History Social History Smoking status: Never smoker Alcohol intake: current Drinks per week: 1 Substance use: never Lack of Transportation: No Lack of Food: Never True Current Housing: I Have Housing Concerned About Future Housing: No Difficulty Paying Gas/Electric Bills: No Difficulty Paying for Meds: No Currently Unemployed: No Education: Associate Degree Difficulty w/ Childcare or Family Care: No Living arrangements: alone Occupation/Education: occupation Additional occupation/education comments: Construction at [employer] Gender identity (if verbalized by the patient): Male Spiritual care concerns: No Exam Const: General: no acute distress Nutritional Appearance: well nourished Orientation/consciousness: patient oriented x3 Limitations: no limitations HENMT: Head: normal to inspection Eyes: Conjunctivae: conjunctivae normal Neck: Neck: normal visual inspection, no lymphadenopathy and no meningeal signs Chest: Chest palpation & inspection: normal inspection of the chest Resp: Effort & Inspection: normal respiratory effort Auscultation: clear to auscultation bilaterally Cardio: Rate: regular rate Rhythm: regular rhythm GI: GI Palp: Yes Soft to palpation Back/Spine/Pelvis: Back: no CVA tenderness Neuro: General: patient oriented x3 Psych: Mental Status: mental status grossly normal Affect: normal affect Course Course Emergency Course: Chest x-ray shows no acute cardiopulmonary abnormalities, patient received Zofran for his nausea, blood work was reviewed and unremarkable, patient is positive for COVID and will be sending a prescription for Paxil O bid. MDM - URI/Sore Throat Lab Data 09/22/23 21:52 09/22/23 21:52 Labs: Lab Results 09/22/23 09/22/23 Range/Units 21:16 21:52 WBC Pending RBC Pending Hgb Pending Hct Pending MCV Pending MCH Pending MC
[2023-09-22 22:21] LABS: Band Neutrophils Percent 0 % (0-6); Lymphocytes Absolute Manual 0.77 K/mm3 (1.1-4.5); Lymphocytes Percent Manual 10 % (18-44); Monocytes Percent Manual 13 % (3-9); Neutrophils Absolute Manual 5.92 K/mm3 (1.3-6.7); Neutrophils Percent Manual 77 % (46-73)
[2023-09-22 22:22] LABS: Basophils Percent Manual 0 % (0-1); Eosinophils Percent Manual 0 % (1-6); Platelet Estimate Adequate (Adequate)
[2023-09-22 22:24] LABS: Alanine Aminotransferase 24 U/L (16-63); Albumin Level 3.9 g/dL (3.4-5.0); Alkaline Phosphatase 74 U/L (46-116); Anion Gap 12 mmol/L (8-16); Aspartate Amino Transferase < 10 U/L (15-37); Bilirubin,Total 0.4 mg/dL (0.00-1.00); Blood Urea Nitrogen 12 mg/dL (7-18); Calcium 9.1 mg/dL (8.5-10.1); Carbon Dioxide 28 mmol/L (21-32); Chloride 96 mmol/L (98-108); Estimated Glomerular Filt Rate > 60; Glucose 114 mg/dL (70-99); Osmolality Calculated 282 mOsm/kg (285-295); Potassium 3.5 mmol/L (3.5-5.1); Sodium 136 mmol/L (136-145); Total Protein 7.6 g/dL (6.4-8.2)
[2023-09-22 22:36] VITALS: BP 130/74; PULSE 84; RESP 18; TEMP 37.2; O2SAT 99
== END 2023-09-22 22:39 | disposition home or self-care (01) ==
PROVIDERS: Emergency Provider Emergency Medicine; PCP Family Medicine
DX: U07.1 COVID-19 (principal); Z79.2 Long term (current) use of antibiotics
CPT/HCPCS: 36415; 71045; 80053; 85025; 87637; 99283; A9270